=== PATIENT | male | born 1970 | race Caucasian/White ===

== ENCOUNTER → 2022-09-15 08:12 | Outpatient (CLI) | payer OTHER, SELFPAY ==
--- NOTE | 2022-09-15 08:13 | CA_ITS ---
FINAL REPORT CLINICAL HISTORY: HTN FINDINGS: Aorta velocity: 125 cm/sec Right kidney: 13.6 cm. There is a 1.4 cm cyst in the lower pole. Right intrarenal RI: 0.58 Right renal artery velocity: 233 cm/sec. Right RAR (Renal artery-Aortic Ratio): 1.86 Left Kidney: 12.2 cm. No evidence of hydronephrosis or mass. Left intrarenal RI: 0.68 Left renal artery velocity: 163 cm/sec. Left RAR (Renal Artery-Aortic Ratio): 1.31 IMPRESSION: No evidence of significant left renal artery stenosis. Less than 60% right renal artery stenosis. Recommend correlation with CTA or catheter directed angiography. Reviewed, Interpreted and Dictated by Fortunato Landis III, MD Transcribed by Thor Tellez Authenticated and [facility]
--- NOTE | 2022-09-15 08:13 | CA_ITS ---
APPROVED REPORT EXAM: Comprehensive 2D, Doppler, and color-flow Echocardiogram Electrophonic Engineer: PARVEEN James, RVS Ht: 6 ft 4 in Wt: 281lbs BSA: 2.56 BP: 157/99 mmHg Indications: HTN, Long-Hauler COVID-persistant SOA, HLD, Smoker 2D Dimensions Aortic Root 3.54 cm LA Volume 73.60 mL Left Atrium 3.93 cm LA Volume Index 28.10 mL/m2 (M/F) 16-34 LVOT 2.15 cm (M/F) 1.5-2.5 M-Mode Dimensions RVDd 2.81 cm (0.9-2.6) LA Diam 4.13 cm (1.9-4.0) LVDd 5.53 cm (3.5-5.7) Ao Diam 3.50 cm (2.0-3.7) LVDs 3.35 cm (3.5-5.7) IVSd 1.25 cm (0.6-1.1) PWd 1.38 cm (0.6-1.1) EF (Teich) 69.30% EPSs 0.27 cm FS 39.40% EDV (Teich) 149.30 mL TAPSE 1.84 (<1.7) ESV (Teich) 45.80 mL LV Diastology E Decel Time 177.00 (160-240 msec) E/A Ratio 4.01 MED E' 7.40 (< 7 cm/sec) MED A' 8.10 cm/s E'/MED E' Ratio 15.46 (>14) LAT E' 10.60 (<10 cm/sec) LAT A' 5.40 cm/s E/LAT E' Ratio 10.79 (>14) Aortic Valve LVOT Max 108.00 (70-110 cm/s) LVOT VTI 25.45 cm AoV Peak Ten. 149.00 (50-130 cm/s) AO Peak GR. 8.90 mmHg AO Mean GR. 4.40 (<5 mmHg) AO VTI 30.92 (18-25 cm) SHERRELL (VTI) 2.99 (2.5-4.5 cm2) Mitral Valve MV E Max Ten. 114.00 (40-130 cm/s) MV A Velocity 28.00 (40-130 cm/s) E/A Ratio 4.01 MV Decel. Time 177.00 (160-240 ms) MV PHT 52.00 ms Pulmonary Valve PV Peak Velocity 81.00 (50-150 cm/s) AZ End VMAX 179.00 cm/s Tricuspid Valve TR P. Velocity 210.00 cm/s RAP Estimate 10.00 mmHg RVSP 27.70 mmHg Left Ventricle Left atrium is mildly enlarged, left ventricle is normal size, mild concentric left ventricular hypertrophy, estimated ejection fraction 55% with no regional wall motion abnormality, diastolic parameters are inconclusive. Right Ventricle Right atrium and right ventricle are mildly enlarged with normal contractility. Aortic Valve Aortic valve is minimally thickened and fibrosed there is no aortic stenosis or aortic insufficiency. Mitral Valve Mitral valve is grossly normal, there is trace mitral regurgitation. Tricuspid Valve Tricuspid grossly normal, there is trace tricuspid regurgitation, tricuspid regurgitation jet velocity is inadequate for calculation of the right ventricular systolic pressure. Pulmonic Valve Pulmonic valve is poorly visualized. Great Vessels Aortic root is normal size. Inferior vena cava is poorly visualized. Pericardium No significant pericardial effusion noted. Conclusion 1. Mild biatrial enlargement, normal left ventricular size, mild concentric left ventricular hypertrophy, estimated ejection fraction 55% with no regional wall motion abnormality, diastolic parameters are inconclusive. 2. Mildly enlarged right ventricle with normal contractility. 3. Trace mitral and tricuspid regurgitation. 4. No significant pericardial effusion. 5. Inferior vena cava is poorly visualized. Electronically signed by : Jean Marie Victoria MD 09/15/2022 18:10:21
== END ==
LOC: RT 08:13
PROVIDERS: PCP Emergency Medicine; Visit Provider Physician Assistant
DX: I10 Essential (primary) hypertension (principal); I48.0 Paroxysmal atrial fibrillation; R53.83 Other fatigue; G47.33 Obstructive sleep apnea (adult) (pediatric); Z99.89 Dependence on other enabling machines and devices
CPT/HCPCS: 93306; 93976

== ENCOUNTER 2022-09-20 23:17 | Emergency (ER) | payer OTHER, SELFPAY ==
[2022-09-20 23:18] VITALS: BP 151/87; PULSE 76; RESP 16; TEMP 36.5; O2SAT 98; BMI 34.0
--- NOTE | 2022-09-20 23:50 | CT_ITS ---
PROCEDURE INFORMATION: Exam: CT Abdomen And Pelvis With Contrast Exam date and time: 09/21/2022 12:29 AM Age: 52 years old Clinical indication: Abdominal pain; Additional info: Abd pain TECHNIQUE: Imaging protocol: Computed tomography of the abdomen and pelvis with contrast. Radiation optimization: All CT scans at this facility use at least one of these dose optimization techniques: automated exposure control; mA and/or kV adjustment per patient size (includes targeted exams where dose is matched to clinical indication); or iterative reconstruction. Contrast material: ISOVUE; Contrast volume: 75 ml; Contrast route: IV; COMPARISON: US CA RENAL ARTERY DUPLEX 09/15/2022 8:50 AM FINDINGS: Liver: Hepatic steatosis. Gallbladder and bile ducts: Normal. No calcified stones. No ductal dilation. Pancreas: Normal. No ductal dilation. Spleen: Normal. No splenomegaly. Adrenal glands: Normal. No mass. Kidneys and ureters: Low attenuation renal lesions measuring up to 5 mm in diameter are incompletely characterized, but are likely cysts. No followup imaging is warranted. Stomach and bowel: Mild nonspecific bowel wall thickening of portions of small bowel and colon. Appendix: Unremarkable appendix. Intraperitoneal space: Unremarkable. No free air. No significant fluid collection. Vasculature: The arteries demonstrate moderate atherosclerotic disease. Lymph nodes: Unremarkable. No enlarged lymph nodes. Urinary bladder: Unremarkable as visualized. Reproductive: Moderate prostate enlargement. Bones/joints: Unremarkable. No acute fracture. Soft tissues: Tiny fat containing umbilical hernia. IMPRESSION: 1. Mild nonspecific bowel wall thickening of portions of small bowel and colon. Please correlate for evidence of enterocolitis. 2. Hepatic steatosis. COMMENTS: Consistent with the [employer]'s Incidental Findings Committee white paper (J Am Jesus Radiol 2018): Any incidental renal lesion less than 1 cm or classified as too small to characterize, or any incidental cystic renal lesion characterized as simple-appearing, is likely benign. No follow-up imaging is recommended for these lesions per consensus recommendations based on imaging criteria.
[2022-09-21 00:04] LABS: Basophils % 0.5 % (0.1-2.0); Eosinophils # 0.2 K/mm3 (0.0-0.4); Eosinophils % 2.2 % (0.1-12.0); Hematocrit 45.5 % (42.0-52.0); Hemoglobin 15.2 g/dL (14.1-18.0); Lymphocytes # 1.8 K/mm3 (0.7-4.5); Lymphocytes % 25.8 % (10-50); Mean Corpuscular HGB Conc 33.3 g/dL (31.8-35.4); Mean Corpuscular Hemoglobin 29.2 pg (27.0-31.2); Mean Corpuscular Volume 87.8 fl (80-94); Mean Platelet Volume 10.5 fl (7.4-10.4); Monocytes # 0.2 K/mm3 (0.1-1.0); Monocytes % 3.5 % (1.7-9.3); Neutrophils # 4.7 K/mm3 (1.8-7.8); Platelet Count 171 K/mm3 (142-424); Red Blood Count 5.19 M/mm3 (4.60-6.20); Red Cell Distribution Width 14.5 % (11.5-17.5); White Blood Count 6.9 K/mm3 (4.8-10.8)
[2022-09-21 00:12] LABS: Alanine Aminotransferase 26 U/L (12-78); Albumin Level 4.5 g/dl (3.5-5.0); Albumin/Globulin Ratio 1.5 (1.1-1.8); Alkaline Phosphatase 74 U/L (38-126); Amylase 44 U/L (30-110); Anion Gap 13.3 mEq/L (5-15); Aspartate Amino Transferase 36 U/L (17-59); Bilirubin,Total 0.5 mg/dl (0.2-1.3); Blood Urea Nitrogen 15 mg/dl (9-20); Calcium 9.4 mg/dl (8.4-10.2); Carbon Dioxide 27 mmol/L (22.0-30.0); Chloride 106 mmol/L (98-107); Creatinine Clearance Estimated 169 mL/min (50-200); Estimated Glomerular Filt Rate 88 ml/min (>60); GFR (African American) 106 ML/MIN (>60); Globulin 3.1 g/dL (1.3-3.2); Glucose 137 mg/dl (74-100); Lipase 67 U/L (23-300); Potassium 4.3 mmoL/L (3.5-5.1); Sodium 142 mmol/L (136-145); Total Protein,Serum 7.6 g/dl (6.3-8.2)
--- NOTE | 2022-09-21 01:21 | HMH.EDABDPAI ---
Discharge Plan Disposition Patient Disposition: Home, Self-Care Chief Complaint: Abdominal Pain Prescriptions Prescriptions: No Action allopurinol 100 mg tablet 100 mg PO DAILY Qty: 30 0RF Eliquis 5 mg tablet 5 mg PO BID Qty: 30 0RF famotidine 40 mg tablet 40 mg PO DAILY Qty: 30 0RF hydrochlorothiazide 12.5 mg capsule 12.5 mg PO DAILY Qty: 30 0RF losartan 100 mg tablet 100 mg PO DAILY Qty: 30 0RF pantoprazole 40 mg tablet,delayed release (DR/EC) 40 mg PO DAILY Qty: 30 0RF sotalol 120 mg tablet 120 mg PO BID Qty: 30 0RF tizanidine [Zanaflex] 4 mg capsule 4 mg PO HS Qty: 30 0RF clonazepam [Klonopin] 0.5 mg tablet 0.5 mg PO BID Qty: 60 1RF oxycodone 10 mg tablet 10 mg PO QID Qty: 120 0RF indomethacin 50 mg capsule 50 mg PO TID PRN Rx Instructions: administer with food or milk diltiazem HCl 240 mg capsule,extended release 24 hr 240 mg PO BID Qty: 60 5RF Referrals Follow up/Referrals: Khai Frederick MD [Primary Care Provider] - See instructions Clinical Impressions Clinical Impression: Abdominal pain Instructions Patient Instructions: DI for Acute Abdominal Pain Discharge ED Provider: Khai Frederick Abdominal Pain HPI General Chief Complaint: Abdominal Pain Stated Complaint: Abdominal pain Time Seen by Provider: 09/21/22 01:21 Mode of Arrival: Ambulatory Source of Information: Patient and Medical Record Limitations: No Limitations Description of Symptoms (Recalled from ER Triage Doc. by RN): pt c/o LUQ pain with nauesa that started around 6 tonight. History of Present Illness HPI narrative: pt with upper abd pain over the last months -worse tonight complaint: abdominal pain Onset (ago): day(s) Consistency: intermittent Location: RUQ Severity: moderate Associated symptoms: denies other symptoms Related Data Home Medications Medication Instructions Recorded Confirmed indomethacin 50 mg capsule 50 mg PO TID PRN 09/01/22 09/17/22 Previous Rx's Medication Instructions Recorded allopurinol 100 mg tablet 100 mg PO DAILY #30 tabs 08/04/22 apixaban 5 mg tablet (Eliquis) 5 mg PO BID #30 tabs 08/04/22 famotidine 40 mg tablet 40 mg PO DAILY #30 tabs 08/04/22 hydrochlorothiazide 12.5 mg capsule 12.5 mg PO DAILY #30 caps 08/04/22 losartan 100 mg tablet 100 mg PO DAILY #30 tabs 08/04/22 pantoprazole 40 mg tablet,delayed 40 mg PO DAILY #30 tabs 08/04/22 release sotalol 120 mg tablet 120 mg PO BID #30 tabs 08/04/22 tizanidine 4 mg capsule (Zanaflex) 4 mg PO HS #30 caps 08/05/22 clonazepam 0.5 mg tablet (Klonopin) 0.5 mg PO BID #60 tabs 08/31/22 oxycodone 10 mg tablet 10 mg PO QID #120 tabs 08/31/22 diltiazem HCl 240 mg capsule,24 240 mg PO BID #60 caps 09/01/22 hr,extended release Allergies Allergy/AdvReac Type Severity Reaction Status Date / Time No Known Allergies Allergy Verified 09/17/22 13:49 [facility] Disclaimer: The information contained in this section may have been updated after the patient was seen, as this information can be updated by other users. 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
[2022-09-21 01:40] VITALS: BP 137/78; PULSE 71; RESP 16; TEMP 36.5; O2SAT 98
[2022-09-21 01:55] LABS: C-Reactive Protein 8.6 mg/L (0-4)
[2022-09-21 02:09] LABS: Procalcitonin 0.057 ng/mL (0.0-2.0)
[2022-09-21 02:40] LABS: Erythrocyte Sedimentation Rate 36 mm/hr (0-20)
== END 2022-09-21 01:47 | disposition home or self-care (01) ==
PROVIDERS: Emergency Provider Emergency Medicine; PCP Emergency Medicine
DX: R10.31 Right lower quadrant pain (principal); R10.32 Left lower quadrant pain; I10 Essential (primary) hypertension; I48.92 Unspecified atrial flutter; K21.9 Gastro-esophageal reflux disease without esophagitis; E78.5 Hyperlipidemia, unspecified; M10.9 Gout, unspecified; F17.200 Nicotine dependence, unspecified, uncomplicated; Z79.01 Long term (current) use of anticoagulants; Z79.899 Other long term (current) drug therapy
CPT/HCPCS: 74177; 80053; 82150; 83690; 84145; 85025; 85651; 86140; 96361; 96374; 96375; 99285; J2405; Q9967

== ENCOUNTER → 2022-09-23 15:00 | Outpatient (CLI) | payer OTHER, SELFPAY ==
--- NOTE | 2022-09-23 15:00 | US_ITS ---
FINAL REPORT TECHNIQUE: Sonographic images were obtained of the retroperitoneum. CLINICAL HISTORY: Z86.79 - Personal history of other diseases of the circul... FINDINGS: The right kidney measures 11.7 cm. The left kidney measures 13.2 cm. There are 9 mm presumed cysts in both kidneys. The spleen is borderline enlarged measuring 12.6 cm. Incidental note is made of fatty infiltration of the liver. IMPRESSION: Subcentimeter presumed bilateral renal cysts. Borderline splenomegaly. Fatty liver. Reviewed, Interpreted and Dictated by Fortunato Landis III, MD Transcribed by Thor Tellez Authenticated and [facility]
== END ==
LOC: RAD 15:00
PROVIDERS: PCP Emergency Medicine; Visit Provider Physician Assistant
DX: I10 Essential (primary) hypertension (principal); I48.0 Paroxysmal atrial fibrillation; E78.5 Hyperlipidemia, unspecified; R53.83 Other fatigue; G47.33 Obstructive sleep apnea (adult) (pediatric); Z86.79 Personal history of other diseases of the circulatory system; Z99.89 Dependence on other enabling machines and devices
CPT/HCPCS: 76770

== ENCOUNTER → 2022-10-01 07:54 | Outpatient (CLI) | payer OTHER, SELFPAY ==
--- NOTE | 2022-10-01 07:54 | US_ITS ---
FINAL REPORT CLINICAL HISTORY: Abdominal pain x's 1 year FINDINGS: ULTRASOUND RIGHT UPPER QUADRANT Sonographic imaging of the right upper quadrant was obtained. The pancreas is partially obscured. The liver is fatty infiltrated. The gallbladder is contracted without definite stones. The right kidney measures 13 cm in length. There is a small right renal cyst which is slightly greater than 1 cm. The right kidney is otherwise unremarkable. There is no ascites. IMPRESSION: Fatty liver. Contracted gallbladder without definite stone disease. Reviewed, Interpreted and Dictated by Guanako Bach MD Transcribed by Amalia España Authenticated and [facility]
== END ==
LOC: RAD 07:54
PROVIDERS: PCP Emergency Medicine; Visit Provider Emergency Medicine
DX: R10.9 Unspecified abdominal pain (principal)
CPT/HCPCS: 76705

== ENCOUNTER → 2022-10-15 10:02 | Outpatient (CLI) | payer OTHER, SELFPAY ==
--- NOTE | 2022-10-15 10:08 | NM_ITS ---
FINAL REPORT TECHNIQUE: The patient was injected with 8.86 mCi of technetium 99 M Choletec and subsequently 2.5 mcg of CCK. Images of the abdomen were obtained for 1 hour. CLINICAL HISTORY: abdominal pain u/s 10/01/22 neg for stones 10:20 am 8.86 [facility]ci tc choletec 2.5 mcg of cck injected into rt ant no pain during cck FINDINGS: Hepatic uptake is normal. The gallbladder and common duct are visualized by 10 minutes. The small bowel is active and normal. The ejection fraction is 81%, normal. IMPRESSION: Normal hepatic biliary scan. Normal ejection fraction of 81%. Reviewed, Interpreted and Dictated by Shelby Blackwood MD Transcribed by Jayde Linares Authenticated and [facility]
== END ==
PROVIDERS: PCP Emergency Medicine; Visit Provider Emergency Medicine
DX: R10.9 Unspecified abdominal pain (principal)
CPT/HCPCS: 78227

== ENCOUNTER → 2022-10-28 12:17 | Outpatient (CLI) | payer OTHER, SELFPAY ==
--- NOTE | 2022-10-28 | CA_ITS ---
APPROVED REPORT Exam: Pharmacologic Technologist: Renetta Pham Ht: 6 ft 4 in Wt: 270 lbs BSA: 2.52 m2 HR: 49 bpm BP: 169/94 mmHg Indications: Chest pain Medical History Medications: Sotalol,,,,, Losartan,,,,, Allopurinol,,,,, Pantoprazole,,,,, HCTZ,,,,, Zanaflex,,,,, Famotidine,,,,, KloNOPIN,,,,, OxYCODONE,,,,, ElIQUIS,,,,, DilTiazem,,,,, INdomethacin,,,,, Stress Test Details Test: LEXISCAN HR Resting HR: 48 bpm Max Heart Rate (APMHR): 166.980600 bpm Max HR Achieved: 65 bpm Target HR (85% APMHR): 141.809155 bpm % of APMHR: 39.16 Recovery HR: 54 bpm BP Resting BP: 169.0/94.0 mmHg Max BP: 169.0/94.0 mmHg Recovery BP: 154.0/92.0 mmHg ECG Resting ECG: Sinus bradycardia, inferior ST T abnormalities Clinical Reason for Termination: Completed Protocol Exercise duration: 04:01 min Highest Stage Achieved: Stress ECG Conclusion Non-diagnostic lexiscan stress test. Patient received the infusion per protocol without chest pain or arrhythmias. Baseline EKG is sinus bradycardia with inferior ST T abnormalities which perclude diagnostic interpretation. See the nuclear report for further information. Test Summary REST . . . . . . . Resting REST 19:41 . . 48 . 169/ 94 . . Stage 1 . . . . . . . Myoview Injected Stage 1 01:00 . . 55 . . . . Stage 2 01:00 . . 60 . . . . Stage 3 01:00 . . 58 . 159/ 93 . . Stage 4 01:00 . . 55 . 154/ 90 . . Stage 4 01:01 . . 55 . 154/ 90 . Stop exercise at 04:01 RECOVERY 01:00 . . 51 . 153/ 92 . . RECOVERY 02:00 . . 56 . 153/ 92 . . RECOVERY 03:00 . . 53 . 154/ 92 . . RECOVERY 03:48 . . 53 . 154/ 92 . . Electronically signed by : Jean Marie Victoria MD 10/28/2022 20:59:56
--- NOTE | 2022-10-28 12:24 | NM_ITS ---
APPROVED REPORT Exam: Nuclear Stress Test Indication: CAD, HTN, TOB USE, SOB, FATIGUE Patient Location: Outpatient Stress Tech: Renetta Pham NM Tech:Brianna Rodriges HOLLY RT (R)(N)(M) Ht: 6 ft 4 in Wt: 270 lbs Bra Size: C HR: 48 bpm BP: 169/94 mmHg BSA: 2.52 m2 TID: 1.15 BMI: 32.8 History: CAD, HTN, TOB USE, SOB, FATIGUE Procedure: Patient received 0.4 mg of intravenous Lexiscan, resting heart rate 48 bpm, resting blood pressure 169/94 mmHg, with Lexiscan maximum heart rate achieved was 60 bpm which is Less than 85 % of the maximum predicted heart rate and blood pressure was 159/93 mmHg. With Lexiscan, patient denied any complaint of chest pain. Electrocardiogram Resting electrocardiogram shows sinus rhythm, with Lexiscan there is less than 1.[address] segment depression noted from the baseline EKG. The EKG portion of the Lexiscan is nondiagnostic. Cardiac Stress and Resting SPECT Images: Cardiac Stress and Resting SPECT images were obtained using technetium 99m Myoview 31.4 mCi stress and 10.37 mCi at rest. Gated SPECT analysis of segmental wall motion and calculation of the ejection fraction no significant. Prone images were also obtained. Cardiac stress and resting SPECT images show uniform myocardial activity without segmental perfusion abnormality, computer derived ejection fraction is 52% with no regional wall motion abnormality, right ventricle is normal size and contractility. Conclusion: 1. The EKG portion of the Lexiscan is nondiagnostic. 2. No scintigraphic evidence of reversible ischemia seen, computer derived ejection fraction 52% with no regional wall motion abnormality, right ventricle is normal size and contractility 3. Normal Lexiscan Myoview study. Electronically signed by : Jean Marie Victoria MD 10/28/2022 21:08:22
== END ==
LOC: RAD 12:18
PROVIDERS: PCP Emergency Medicine; Visit Provider Internal Medicine
DX: I48.0 Paroxysmal atrial fibrillation (principal); I10 Essential (primary) hypertension; R53.83 Other fatigue; E78.5 Hyperlipidemia, unspecified; G47.33 Obstructive sleep apnea (adult) (pediatric); Z86.79 Personal history of other diseases of the circulatory system; Z99.89 Dependence on other enabling machines and devices
CPT/HCPCS: 78452; 93017; A9502; J2785

== ENCOUNTER 2022-11-03 08:17 | Day surgery (SDC) | payer OTHER, SELFPAY ==
--- NOTE | 2022-10-27 12:39 | SUR.PREOP ---
Procedure cancelled due to patient drinking coffee with creamer @ 1040. Spoke w/ Franck VEGETABLE VENDOR who spoke w/ Dr Stapleton. Patient will be rescheduled I have notified BJ in office
[2022-10-30 10:00] VITALS: BMI 32.8
[2022-11-03 08:38] VITALS: BP 178/95; PULSE 67; RESP 18; TEMP 36.4; O2SAT 99
[2022-11-03 08:51] VITALS: O2SAT 97
[2022-11-03 09:12] VITALS: BP 115/70; PULSE 54; RESP 18; TEMP 36.8; O2SAT 95
--- NOTE | 2022-11-03 09:12 | HMH.SCOPE ---
Procedure: Date: 11/03/22 Patient Date of :: 1970 Procedure Performed:: Esophagogastroduodenoscopy with biopsy Indications:: Gastroesophageal reflux Performing Provider:: Jordan Stapleton MD Referring Provider:: . Sedation:: Monitored anesthesia care Procedure:: After informed consent was obtained the patient was taken to the endoscopy suite. Sedation ensued after the patient was transferred to the left lateral decubitus position. Pulse, blood pressure, and oxygen saturation were monitored throughout the procedure. The endoscope was advanced beyond the duodenal bulb. Retroflexion within the gastric lumen was accomplished. The gastroscope was carefully removed and the patient was transferred to recovery in stable condition. Please see findings and specimens below for detail. Findings:: Adjacent sessile/lobulated polyps around 20 cm Gastroesophageal junction at 45 cm Patchy gastritis Small sliding hiatal hernia Specimens:: Antral biopsy Biopsy of esophageal polyps around 20 cm Recommendations:: Follow-up pathology Note: The patient is currently overdue for screening colonoscopy (plan colonoscopy pending results of pathology) Complications:: No immediate Estimated blood obtained (mL): 1
--- NOTE | 2022-11-03 09:21 | P.PN_ITS ---
[facility] Disclaimer: The information contained in this section may have been updated after the patient was seen, as this information can be updated by other users. 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 physical activity: walking frequency: 1-2 times per week [facility] Anesthesia Checklist Patient Identification Patient Identification: Arm Band and Family Structural Data Admitted From: Home Planned Operative Procedure/s: EGD NPO Status Verified Time NPO: 00:00 Additional verifications Anesthesia Reactions: No Hx Blood Transfusions: No Blood Transfusion Reaction: No Cephalosporin Allergy: No Previous Colonoscopy: No Airway Assessment C-Spine Mobility Assessed: Yes TMJ Mobility Assessed: Yes Dentition: Good Dentition Neurological Assessment Level of Consciousness: Awake, Alert and Appropriate Hx Seizures: No Numbness or tingling in extremities: No Anesthesia Plan Anesthesia Risk discussed: Yes ASA Class: III Anesthesia Type: MAC Preoperative Comments Pre-Operative Comments: Cardiac ablation x3. HTN, History of ATRIAL FIP
[2022-11-03 09:22] VITALS: BP 126/75; PULSE 51; RESP 16; O2SAT 96
[2022-11-03 09:32] VITALS: BP 150/80; PULSE 47; RESP 17; O2SAT 96
[2022-11-03 09:49] VITALS: BP 150/80; PULSE 47; RESP 17; O2SAT 96
== END 2022-11-03 09:52 | disposition home or self-care (01) ==
PROVIDERS: PCP Emergency Medicine; Visit Provider Surgery
PROC: 0DJ08ZZ Inspection of Upper Intestinal Tract, Via Natural or Artificial Opening Endoscopic (ICD-10-PCS; CPT 43235; principal; 2022-11-03 09:30)
DX: K21.00 Gastro-esophageal reflux disease with esophagitis, without bleeding (principal); K31.9 Disease of stomach and duodenum, unspecified; Z72.0 Tobacco use; Z79.899 Other long term (current) drug therapy; K44.9 Diaphragmatic hernia without obstruction or gangrene
CPT/HCPCS: 43239; 88305

== ENCOUNTER → 2022-12-28 14:11 | Outpatient (CLI) | payer OTHER, SELFPAY ==
[2022-12-28 15:38] LABS: Basophils % 0.5 % (0.1-2.0); Eosinophils # 0.2 K/mm3 (0.0-0.4); Eosinophils % 2.1 % (0.1-12.0); Hematocrit 49.2 % (42.0-52.0); Hemoglobin 15.6 g/dL (14.1-18.0); Lymphocytes # 1.9 K/mm3 (0.7-4.5); Lymphocytes % 22.5 % (10-50); Mean Corpuscular HGB Conc 31.6 g/dL (31.8-35.4); Mean Corpuscular Hemoglobin 29.2 pg (27.0-31.2); Mean Corpuscular Volume 92.4 fl (80-94); Mean Platelet Volume 10.9 fl (7.4-10.4); Monocytes # 0.4 K/mm3 (0.1-1.0); Monocytes % 4.6 % (1.7-9.3); Neutrophils # 5.8 K/mm3 (1.8-7.8); Neutrophils % 70.4 % (37.0-80.0); Platelet Count 155 K/mm3 (142-424); Red Blood Count 5.33 M/mm3 (4.60-6.20); Red Cell Distribution Width 14.8 % (11.5-17.5); White Blood Count 8.2 K/mm3 (4.8-10.8)
[2022-12-28 16:27] LABS: Chloride 103 mmol/L (98-107)
[2022-12-28 16:28] LABS: Potassium 4.4 mmoL/L (3.5-5.1)
[2022-12-28 16:30] LABS: Alanine Aminotransferase 26 U/L (12-78); Albumin Level 4.3 g/dl (3.5-5.0); Alkaline Phosphatase 86 U/L (38-126); Aspartate Amino Transferase 27 U/L (17-59); Bilirubin,Direct 0.1 mg/dl (0.0-0.4); Bilirubin,Indirect 0.4 mg/dL (0.0-0.9); Bilirubin,Total 0.5 mg/dl (0.2-1.3); Bilirubin,Unconjugated 0.4 mg/dL (0.0-1.1); Blood Urea Nitrogen 17 mg/dl (9-20); Carbon Dioxide 28 mmol/L (22.0-30.0); Cholesterol 168 mg/dl (140-200); Estimated Glomerular Filt Rate 78 ml/min (>60); GFR (African American) 94 ML/MIN (>60); Glucose 112 mg/dl (74-100); Magnesium 2.1 mg/dl (1.6-2.3); Triglycerides 524 mg/dl (30-150)
[2022-12-28 16:31] LABS: Chol/HDL Ratio 4.9 (1-3.5); HDL Cholesterol 34 mg/dl (40-60)
[2022-12-28 16:49] LABS: Free T4 (Free Thyroxine) 0.88 ng/dl (0.78-2.19)
[2022-12-28 16:51] LABS: C-Reactive Protein 4.6 mg/L (0-4)
[2022-12-28 17:05] LABS: Erythrocyte Sedimentation Rate 15 mm/hr (0-20)
[2022-12-28 19:53] LABS: Anion Gap 13.4 mEq/L (5-15); Sodium 140 mmol/L (136-145)
[2022-12-30 12:54] LABS: Testosterone,Total 115 ng/dL (264-916)
[2023-01-05 18:06] LABS: 1,25 Dihydroxy Vitamin D 38 pg/mL (.); 1,25-Dihydroxy, Vitamin D-2 <10 pg/mL (.); 1,25-Dihydroxy, Vitamin D-3 35 pg/mL (.)
== END ==
PROVIDERS: Internal Medicine; PCP Emergency Medicine; Visit Provider Nurse Practitioner Family
DX: R06.00 Dyspnea, unspecified (principal); I48.0 Paroxysmal atrial fibrillation; I10 Essential (primary) hypertension; E78.5 Hyperlipidemia, unspecified; R53.83 Other fatigue; G47.33 Obstructive sleep apnea (adult) (pediatric); E66.9 Obesity, unspecified; Z68.33 Body mass index [BMI] 33.0-33.9, adult; Z86.79 Personal history of other diseases of the circulatory system; Z99.89 Dependence on other enabling machines and devices
CPT/HCPCS: 36415; 80048; 80061; 80076; 82652; 83735; 84403; 84439; 84443; 85025; 85651; 86140

== ENCOUNTER → 2023-01-19 23:23 | Outpatient (CLI) | payer OTHER, SELFPAY ==
[2023-01-19 20:28] LABS: Amphetamine/Metha Screen,Urine Negative ng/ml (<1000); Barbiturates Screen,Urine Negative ng/ml (<200)
[2023-01-19 20:29] LABS: Benzodiazepines Screen,Urine Negative ng/ml (<200)
[2023-01-19 20:32] LABS: Cannabinoid Screen,Urine Negative ng/ml (<50)
[2023-01-19 20:33] LABS: Cocaine Screen,Urine Positive ng/ml (<300)
[2023-01-19 20:34] LABS: Methadone Screen,Urine Negative ng/ml (<300); Opiate Screen,Urine Negative ng/ml (<300)
[2023-01-19 20:35] LABS: Phencyclidine Screen,Urine Negative ng/ml (<25)
== END ==
LOC: LAB.DROPOF 23:23
PROVIDERS: PCP Emergency Medicine; Visit Provider Emergency Medicine
DX: Z79.899 Other long term (current) drug therapy (principal)
CPT/HCPCS: 80305

== ENCOUNTER → 2023-02-01 15:00 | Outpatient (CLI) | payer OTHER, SELFPAY ==
[2023-02-01 18:52] LABS: Amphetamine/Metha Screen,Urine Negative ng/ml (<1000); Barbiturates Screen,Urine Negative ng/ml (<200)
[2023-02-01 18:53] LABS: Benzodiazepines Screen,Urine Negative ng/ml (<200); Cannabinoid Screen,Urine Negative ng/ml (<50)
[2023-02-01 18:54] LABS: Cocaine Screen,Urine Negative ng/ml (<300)
[2023-02-01 18:55] LABS: Methadone Screen,Urine Negative ng/ml (<300); Opiate Screen,Urine Positive ng/ml (<300)
[2023-02-01 18:56] LABS: Phencyclidine Screen,Urine Negative ng/ml (<25)
== END ==
LOC: LAB.DROPOF 02-02 06:22
PROVIDERS: PCP Nurse Practitioner Family; Visit Provider Nurse Practitioner Family
DX: Z79.899 Other long term (current) drug therapy (principal)
CPT/HCPCS: 80305

== ENCOUNTER → 2023-03-17 16:05 | Outpatient (CLI) | payer OTHER, SELFPAY ==
[2023-03-17 19:54] LABS: Amphetamine/Metha Screen,Urine Negative ng/ml (<1000); Barbiturates Screen,Urine Negative ng/ml (<200)
[2023-03-17 19:55] LABS: Benzodiazepines Screen,Urine Negative ng/ml (<200)
[2023-03-17 19:56] LABS: Cannabinoid Screen,Urine Negative ng/ml (<50)
[2023-03-17 19:57] LABS: Cocaine Screen,Urine Negative ng/ml (<300); Methadone Screen,Urine Negative ng/ml (<300)
[2023-03-17 19:58] LABS: Opiate Screen,Urine Negative ng/ml (<300)
[2023-03-17 19:59] LABS: Phencyclidine Screen,Urine Negative ng/ml (<25)
== END ==
LOC: LAB.DROPOF 03-18 07:24
PROVIDERS: PCP Emergency Medicine; Visit Provider Emergency Medicine
DX: Z79.899 Other long term (current) drug therapy (principal)
CPT/HCPCS: 80305

== ENCOUNTER → 2023-07-08 23:11 | Outpatient (CLI) | payer MEDICAID, SELFPAY ==
[2023-07-08 19:10] LABS: Amphetamine/Metha Screen,Urine Negative ng/ml (<1000); Chol/HDL Ratio 4.2 (1-3.5); Cholesterol 165 mg/dl (140-200); HDL Cholesterol 39 mg/dl (40-60); Triglycerides 177 mg/dl (30-150); VLDL Cholesterol 35 mg/dL (0-40)
[2023-07-08 19:11] LABS: Barbiturates Screen,Urine Negative ng/ml (<200); Benzodiazepines Screen,Urine Negative ng/ml (<200); Microalbumin < 6.000 mg/L (0-16.7)
[2023-07-08 19:12] LABS: Cannabinoid Screen,Urine Negative ng/ml (<50); Cocaine Screen,Urine Negative ng/ml (<300)
[2023-07-08 19:13] LABS: Methadone Screen,Urine Negative ng/ml (<300)
[2023-07-08 19:14] LABS: Opiate Screen,Urine Negative ng/ml (<300); Phencyclidine Screen,Urine Negative ng/ml (<25)
[2023-07-08 19:21] LABS: Direct LDL Cholesterol 90.01 mg/dL (100-129)
[2023-07-08 19:27] LABS: Creatinine,Urine Random 23 mg/dL (Not Estab.)
== END ==
LOC: LAB.DROPOF 23:12
PROVIDERS: PCP Emergency Medicine; Visit Provider Internal Medicine
DX: Z79.899 Other long term (current) drug therapy (principal); E78.00 Pure hypercholesterolemia, unspecified; R77.8 Other specified abnormalities of plasma proteins
CPT/HCPCS: 80061; 80305; 82043; 82570

== ENCOUNTER → 2023-07-08 23:13 | Outpatient (CLI) | payer MEDICAID, SELFPAY | PROVIDERS: PCP Emergency Medicine; Visit Provider Internal Medicine | DX: R77.8 Other specified abnormalities of plasma proteins (principal) ==

== ENCOUNTER → 2023-08-13 12:00 | Outpatient (CLI) | payer MEDICAID, SELFPAY ==
[2023-08-13 18:43] LABS: Amphetamine/Metha Screen,Urine Negative ng/ml (<1000)
[2023-08-13 18:44] LABS: Barbiturates Screen,Urine Negative ng/ml (<200)
[2023-08-13 18:45] LABS: Benzodiazepines Screen,Urine Negative ng/ml (<200)
[2023-08-13 18:46] LABS: Cannabinoid Screen,Urine Negative ng/ml (<50); Cocaine Screen,Urine Negative ng/ml (<300)
[2023-08-13 18:47] LABS: Methadone Screen,Urine Negative ng/ml (<300); Opiate Screen,Urine Negative ng/ml (<300)
[2023-08-13 18:48] LABS: Phencyclidine Screen,Urine Negative ng/ml (<25)
== END ==
PROVIDERS: PCP Emergency Medicine; Visit Provider Emergency Medicine
DX: M54.12 Radiculopathy, cervical region (principal)
CPT/HCPCS: 80305

== ENCOUNTER 2023-10-14 12:42 | Outpatient (CLI) | payer MEDICAID, SELFPAY ==
[2023-10-14 14:14] LABS: Amphetamine/Metha Screen,Urine Negative ng/ml (<1000); Barbiturates Screen,Urine Negative ng/ml (<200)
[2023-10-14 14:15] LABS: Benzodiazepines Screen,Urine Negative ng/ml (<200)
[2023-10-14 14:16] LABS: Cannabinoid Screen,Urine Positive ng/ml (<50); Cocaine Screen,Urine Negative ng/ml (<300)
[2023-10-14 14:17] LABS: Methadone Screen,Urine Negative ng/ml (<300)
[2023-10-14 14:18] LABS: Opiate Screen,Urine Negative ng/ml (<300); Phencyclidine Screen,Urine Negative ng/ml (<25)
[2023-10-18 23:07] LABS: Alprazolam Negative (Cutoff=100); Benzodiazepines Negative ng/mL (Cutoff=100); Clonazepam Negative (Cutoff=100); Flurazepam Negative (Cutoff=100); Lorazepam Negative (Cutoff=100); Midazolam Negative (Cutoff=100); Opiates Negative (Cutoff=100); Temazepam Negative (Cutoff=100); Triazolam Negative (Cutoff=100)
== END 2023-10-14 23:59 ==
LOC: LAB.DROPOF 12:43
PROVIDERS: PCP Family Medicine; Visit Provider Family Medicine
DX: Z79.899 Other long term (current) drug therapy (principal)
CPT/HCPCS: 80307; 80346; 80361; 80365; G0480